=== PATIENT | male | born 1980 | race Caucasian/White ===

== ENCOUNTER 2020-08-12 19:10 | Emergency (ER) | payer OTHER ==
[~2020-08-12] VITALS: Ht 182.9 cm; Wt 173.3 kg
[~2020-08-12 19:10] MED LIST: ASPI-COR81 M3 PO; ASPIR 8181 MG PO; AUG500 PO; BACO TOP; BACTRIM1 TAB PO; BENAZEPRIL HYDR20 M1 PO; BENAZEPRIL10 M1 GT; BG MC; BIO-CEF500 M1 PO; CLEOCIN HCL300 MG PO; CLINDAMYCI600 MG/50 IV; CLINDAMYCIN HC300 MG PO; COL100 PO; COLACE100 MG PO; DEXPF IV; DIA5 PO; DIABETIC TUSSI118 M2 PO; ECO81 PO; EFFEXOR XR37.5 MG PO; ENALAPRIL MALEA20 MG PO; ENALAPRIL MALEAT5 MG PO; FER300 PO; GLIPIZIDE5 MG PO; GLU850 PO; GLUCOTROL5 MG PO; HEP5I SC; HIBICLENS118 ML TOP; HUMULIN R100 U/1 M1 SC; HYDROMORPHONE1 MG/M1 IV; LAC PO; LAC30L PO; LEV500PM IV; LEVAQUIN750 MG PO; LEVAQUIN750 MG/150 IV; LEVEMIR100 U/M1 SC; LIPI10 PO; LOVASTATIN20 MG PO; MAG PO; MAGNESIUM OXID400 MG PO; METFORMIN HCL1000 MG PO; METFORMIN HCL850 MG PO; MEV20 PO; MEVACOR20 MG PO; MULTI-VITAMINS1 TAB PO; NEU100 PO; NEURONTIN100 MG PO; NOR10T PO; NORCO1 TA2 PO; PLA75 PO; SERTRALINE HYDR25 MG PO; SERTRALINE HYDR50 M1 PO; THERAGRAN-M1 TA4 PO; TYL325 PO; V10 PO; VASOTEC20 MG PO; VITAMIN D1 SG1 PO; VITC PO; ZOFI IV; ZOS3PM IV; ZYV600 PO; [UNRECOGNIZED DRUG - OTHER] TOP; glucometer; lancets; test strips
[2020-08-12 19:18] VITALS: Ht 182.9 cm; Wt 173.3 kg
== END 2020-08-12 19:57 | disposition home or self-care (01) ==
LOC: ED 19:10
DX: L02.811 Cutaneous abscess of head [any part, except face] (principal); I10 Essential (primary) hypertension; E11.9 Type 2 diabetes mellitus without complications; E78.00 Pure hypercholesterolemia, unspecified; Z88.2 Allergy status to sulfonamides; Z88.1 Allergy status to other antibiotic agents; Z89.431 Acquired absence of right foot